=== PATIENT | male | born 1965 | race Caucasian/White ===

== ENCOUNTER 2018-09-17 11:25 | Emergency (ER) | payer OTHER ==
[2018-09-17] MEDS ORDERED: ALPRAZOLAM 0.5 MG TABLET PO ONE (12:46)
--- NOTE | 2018-09-17 12:57 | ER Document Report ---
ED General - General Chief Complaint: Anxiety Stated Complaint: ANXIETY Time Seen by Provider: 09/17/18 12:45 Primary Care Provider: THALIA DAN [NO LOCAL MD] - Follow up as needed Mode of Arrival: Ambulatory Information source: Patient Notes: 53-year-old male presents with chief complaint of feeling anxious. Patient states this started yesterday. He states he recently drove down from [facility] to visit his son and has felt very edgy, has had tingling in his fingers and lips and has intermittent shortness of breath. Patient has had prior similar symptoms but has never been medicated. 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 He is also dealing with his ex- while visiting his son. Patient denies chest pain, tobacco use, drug use, leg swelling. TRAVEL OUTSIDE OF THE [place] IN LAST 30 DAYS: No - HPI Onset: Yesterday Onset/Duration: Sudden Quality of pain: No pain Associated symptoms: Nausea, Shortness of breath, Other - Tingling of his fingertips and lips Exacerbated by: Denies Relieved by: Denies Similar symptoms previously: Yes Recently seen / treated by doctor: No - Related Data Allergies/Adverse Reactions: Penicillins Allergy (Verified 09/17/18 11:26) Past Medical History - General Information source: Patient, [facility] Records - Social History Smoking Status: Never Smoker Frequency of alcohol use: Social Drug Abuse: None Lives with: Alone Family History: Reviewed & Not Pertinent Patient has suicidal ideation: No Patient has homicidal ideation: No - Past Medical History Cardiac Medical History: Reports: Hx Hypertension Renal/ Medical History: Denies: Hx Peritoneal Dialysis GI Medical History: Reports: Hx Gastroesophageal Reflux Disease Past Surgical History: Reports: Hx Appendectomy, Hx Cholecystectomy Review of Systems - Review of Systems Constitutional: denies: Chills, Recent illness EENT: denies: Blurred vision Cardiovascular: Palpitations, Heart racing. denies: Chest pain Respiratory: Short of breath Gastrointestinal: Nausea. denies: Abdominal pain Genitourinary: denies: Flank pain Male Genitourinary: No symptoms reported Musculoskeletal: denies: Back pain Skin: denies: Rash Hematologic/Lymphatic: No symptoms reported Neurological/Psychological: Anxiety, Numbness, Tingling. denies: Confusion, Depression, Weakness, Headaches -: Yes All other systems reviewed and negative Physical Exam - Vital signs Vitals: Temp Pulse Resp BP Pulse Ox 97.4 F 84 20 143/99 H 98 09/17/18 11:31 09/17/18 11:31 09/17/18 11:31 09/17/18 11:31 09/17/18 11:31 - Notes Notes: PHYSICAL EXAMINATION: GENERAL: Well-appearing, well-nourished and in no acute distress. HEAD: Atraumatic, normocephalic. EYES: Pupils equal round and reactive to light, extraocular movements intact, sclera anicteric, conjunctiva are normal. ENT: Nares patent, oropharynx clear without exudates. Moist mucous membranes. NECK: Normal range of motion, supple without lymphadenopathy LUNGS: Breath sounds clear to auscultation bilaterally and equal. No wheezes rales or rhonchi. HEART: Regular rate and rhythm without murmurs ABDOMEN: Soft, nontender, nondistended abdomen. No guarding, no rebound. No masses appreciated. Musculoskeletal: Normal range of motion, no pitting or edema. No cyanosis. NEUROLOGICAL: Cranial nerves grossly intact. Normal speech, normal gait. Normal sensory, motor exams PSYCH: Anxious, pressured speech, denies suicidal, homicidal ideation SKIN: Warm, Dry, normal turgor, no rashes or lesions noted. Course - Re-evaluation Re-evalutation: Temp Pulse Resp BP Pulse Ox 97.4 F 82 17 153/97 H 100 09/17/18 11:31 09/17/18 13:59 09/17/18 13:59 09/17/18 13:59 09/17/18 13:59 53-year-old male presents with chief complaint of feeling anxious. Patient states this started yesterday. He states he recently drove down from [facility] to visit his son and has felt very edgy, has had tingling in his fingers and lips and has intermittent shortness of breath. Patient has had prior similar symptoms but has never been medicated. 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 He is also dealing with his ex- while visiting his son. Patient denies chest pain, tobacco use, drug use, leg swelling. 09/17/18 13:54 Patient reports great improvement in his anxiety after receiving 1 mg of Xanax by mouth. He is requesting discharge home. Patient was evaluated and treated as appropriate for the patient's presenting symptoms and complaint, with consideration of any critical or life threatening conditions that may be associated with their obtained history and exam as noted above. All results were discussed with patient. Patient provided the opportunity to ask questions, and express concerns. Patient was educated on treatments based on their presumed diagnosis as noted above. At this time we will discharge the patient with return precautions and follow-up recommendations. Verbal discharge instructions given a the bedside. Medication warnings reviewed. Patient is in agreement with this plan and has verbalized understanding of return precautions. After careful consideration I feel that that patient can be safely discharged from the emergency department, they were advised to followup with a primary care physician in 2-3 days. Dictation on this chart was performed using voice recognition software and may result in unintended grammatical, spelling, syntax or errors. 09/17/18 14:55 09/17/18 14:56 - Vital Signs Vital signs: Temp Pulse Resp BP Pulse Ox 97.4 F 82 17 153/97 H 100 09/17/18 11:31 09/17/18 13:59 09/17/18 13:59 09/17/18 13:59 09/17/18 13:59 - EKG Interpretation by Me EKG shows normal: Sinus rhythm Rate: Normal Rhythm: NSR When compared to previous EKG there are: Previous EKG unavailable Discharge - Discharge Clinical Impression: Anxiety, Elevated blood pressure reading Condition: Good Disposition: HOME, SELF-CARE Instructions: Anxiety ([facility]) Additional Instructions: Follow up with your [id number] hours for further care or return to the ED IMMEDIATELY if symptoms worsen or you have any concerns. If you cannot afford to follow up with your primary care physician a list of low cost clinics have been provided at the end of your discharge papers as well. Most prescribed medications have multiple side effects. The safest thing to do is when filling your prescription speak to your pharmacist regarding possible interactions with your normal home medications and over the counter medications such as Ibuprofen, Tylenol, Benadryl. If you experience any symptoms that cause you discomfort or concern you should discontinue the medication immediately and return to the emergency room or call your primary care physician. Prescriptions: Alprazolam [Xanax 0.5 mg Tablet] 0.5 mg PO Q8H PRN #6 tab PRN Reason: Anxiety Forms: Elevated Blood Pressure Referrals: LOCALMD,NO [NO LOCAL MD] - Follow up as needed
[2018-09-17 14:02] VITALS: BP 153/97
--- NOTE | 2018-09-18 13:12 | EKG REPORT ---
SEVERITY:- NORMAL ECG - SINUS RHYTHM : Confirmed by: Mark Clifton MD 18-Sep-2018 13:11:15
== END 2018-09-17 14:03 | disposition home or self-care (01) ==
LOC: ER 11:25
DX: F41.9 Anxiety disorder, unspecified (principal); I10 Essential (primary) hypertension; R20.0 Anesthesia of skin; R06.02 Shortness of breath; R11.0 Nausea; R00.2 Palpitations
CPT/HCPCS: 93005; 93010; 99283